=== PATIENT | female | born 1945 | race African-American/Black ===

== ENCOUNTER 2021-06-18 13:53 | Inpatient (IN) ==
[2021-06-18] MEDS ORDERED: ASPIRIN 325 MG TABLET PO STA (16:01)
[2021-06-18 16:55] LABS: Basophils % 0.5 % (0.0-0.8); Eosinophils # 0.3 10*3/uL (0.0-0.87); Eosinophils % 3.7 % (0.00-10.9); Hematocrit 47.1 VOL% (35.7-47.0); Hemoglobin 14.1 GM/DL (12.0-16.0); Immature Granulocytes % 0.4 %; Immature Granulocytes Absolute 0.03 #; Lymphocytes # 2.3 10*3/uL (1.4-4.0); Lymphocytes % 29.1 % (21.3-54.2); Mean Corpuscular HGB Conc 29.9 GM/DL (32-36); Mean Corpuscular Volume 100.6 FL (87-102); Monocytes # 0.8 10*3/uL (0.11-0.8); Monocytes % 10.3 % (1.7-12.7); Platelet Count 179 T/CUMM (130-400); Red Blood Count 4.68 MC/CUMM (3.8-5.5); Red Cell Distribution Width 13.9 % (9.3-17.3); White Blood Count 7.9 T/CUMM (4-12)
[2021-06-18 16:57] LABS: Albumin 3.5 G/DL (3.4-5.0); Bilirubin,Total 0.7 MG/DL (0.20-1.00); Calcium 9.2 MG/DL (8.5-10.1); Osmolality,Calculated 299.8 MOS/KG (273-304); Potassium 4.3 MMOL/L (3.5-5.1); Total Protein 8.1 G/DL (6.4-8.2)
[2021-06-18 17:06] LABS: INR 1.2; PT Patient Result 13.3 SECS (10.5-12.0)
[2021-06-18] MEDS ORDERED: FUROSEMIDE 40 MG/4 ML VIAL IV STA (17:54)
[2021-06-18] MEDS ORDERED: ONDANSETRON 4 MG/2 ML VIAL IV PRN (19:11)
[2021-06-18] MEDS ORDERED: GLUCAGON 1 MG VIAL IM PRN (19:11)
[2021-06-18] MEDS ORDERED: DOCUSATE SODIUM 100 MG CAPSULE PO PRN (19:11)
[2021-06-18] MEDS ORDERED: hydrALAZINE 20 MG/1 ML VIAL IV PRN (19:11)
[2021-06-18] MEDS ORDERED: ENOXAPARIN 40 MG/0.4 ML SYRINGE SUBCUT SCH (19:30)
[2021-06-18] MEDS ORDERED: DEXTROSE 10% 250 ML BAG IV PRN (19:45)
[2021-06-18 20:14] LABS: Albumin 3.6 G/DL (3.4-5.0); Bilirubin,Direct 0.12 MG/DL (0.0-0.20); Bilirubin,Indirect 0.5 MG/DL (0.0-1.0); Bilirubin,Total 0.6 MG/DL (0.20-1.00)
[2021-06-18] MEDS: ENOXAPARIN 40 MG/0.4 ML SYRINGE SUBCUT SCH (20:35)
[2021-06-18] MEDS: INSULIN REGULAR 100 UNIT/ML SUBCUT SCH (21:39)
[2021-06-18] MEDS: carvediloL 25 MG TABLET PO SCH (21:41)
[2021-06-18] MEDS: ALBUTEROL/IPRATROPIUM 3 ML NEB RESP TX SCH (23:40)
[2021-06-19] MEDS: ALBUTEROL/IPRATROPIUM 3 ML NEB RESP TX SCH ×6 (03:25→23:50)
[2021-06-19] MEDS: PANTOPRAZOLE 40 MG TABLET PO SCH (06:03)
[2021-06-19 06:12] LABS: Bilirubin,Total 0.5 MG/DL (0.20-1.00); Calcium 9.1 MG/DL (8.5-10.1); Osmolality,Calculated 298.8 MOS/KG (273-304); Potassium 3.5 MMOL/L (3.5-5.1); Risk Ratio 2.47; VLDL Cholesterol 22.6 MG/DL
[2021-06-19 06:21] LABS: Basophils % 0.5 % (0.0-0.8); Eosinophils # 0.3 10*3/uL (0.0-0.87); Eosinophils % 4.3 % (0.00-10.9); Immature Granulocytes % 0.5 %; Immature Granulocytes Absolute 0.04 #; Lymphocytes # 2.3 10*3/uL (1.4-4.0); Lymphocytes % 31.7 % (21.3-54.2); Mean Corpuscular HGB Conc 29.7 GM/DL (32-36); Mean Corpuscular Volume 101.6 FL (87-102); Mean Platelet Volume 9.9 FL (9.6-12.0); Monocytes # 0.8 10*3/uL (0.11-0.8); Monocytes % 11.2 % (1.7-12.7); Neutrophils % 51.8 % (38.7-73.9); Platelet Count 156 T/CUMM (130-400); Red Cell Distribution Width 13.8 % (9.3-17.3); White Blood Count 7.3 T/CUMM (4-12)
[2021-06-19 06:22] LABS: Hematocrit 43.7 VOL% (35.7-47.0)
[2021-06-19] MEDS: INSULIN REGULAR 100 UNIT/ML SUBCUT SCH ×4 (08:01→22:24)
[2021-06-19] MEDS ORDERED: SPIRONOLACTONE 25 MG TABLET PO SCH ×2 (09:00→13:00)
[2021-06-19] MEDS ORDERED: lisinopriL 10 MG TABLET PO SCH (09:00)
[2021-06-19] MEDS: ASPIRIN EC 81 MG TABLET PO SCH (09:48)
[2021-06-19] MEDS: predniSONE 20 MG TABLET PO SCH (09:48)
[2021-06-19] MEDS: ATORVASTATIN 40 MG TABLET PO SCH ×2 (09:50→09:54)
[2021-06-19] MEDS: AZITHROMYCIN 250 MG TABLET PO SCH (09:50)
[2021-06-19] MEDS: CHOLECALCIFEROL 5,000 UNIT TABLET PO SCH (09:54)
[2021-06-19] MEDS: carvediloL 25 MG TABLET PO SCH ×2 (10:01→22:19)
[2021-06-19] MEDS: FUROSEMIDE 40 MG/4 ML VIAL IV SCH ×2 (10:02→17:16)
[2021-06-19] MEDS ORDERED: POTASSIUM CHLORIDE 20 MEQ TABLET PO ONE (10:06)
[2021-06-19] MEDS ORDERED: SPIRONOLACTONE 25 MG TABLET PO ONE (13:00)
[2021-06-19] MEDS ORDERED: COLCHICINE 0.6 MG CAPSULE PO PRN (13:30)
[2021-06-19] MEDS: ENOXAPARIN 40 MG/0.4 ML SYRINGE SUBCUT SCH (22:19)
[2021-06-19] MEDS: MAGNESIUM OXIDE 400 MG TABLET PO SCH (22:19)
[2021-06-19 22:57] LABS: Bacteria,Urine Occasional /HPF (Few); Hyaline Casts,Urine 1 /LPF (0-3); Urine Appearance Clear (Clear); Urine Color Yellow (Yellow); Urine Specific Gravity 1.015 (1.001-1.035)
[2021-06-19 22:58] LABS: Bilirubin,Urine Negative (Negative); Blood, Urine Negative (Negative); Glucose,Urine (UA) >=1000 mg/dL (Negative); Ketones,Urine Negative (Negative); Nitrite,Urine Negative (Negative); Protein,Urine Negative (Negative); Urine Urobilinogen 0.2 eU/dL (<2.0)
[2021-06-20] MEDS: ALBUTEROL/IPRATROPIUM 3 ML NEB RESP TX SCH ×6 (03:50→23:00)
[2021-06-20 05:49] LABS: Albumin 3.1 G/DL (3.4-5.0); Bilirubin,Total 0.5 MG/DL (0.20-1.00); Calcium 9.7 MG/DL (8.5-10.1); Osmolality,Calculated 300.1 MOS/KG (273-304); Potassium 3.9 MMOL/L (3.5-5.1); Total Protein 7.2 G/DL (6.4-8.2)
[2021-06-20] MEDS: PANTOPRAZOLE 40 MG TABLET PO SCH (06:38)
[2021-06-20] MEDS ORDERED: ISOSORBIDE MONONITRATE 30 MG TABLET PO SCH (09:00)
[2021-06-20] MEDS: INSULIN REGULAR 100 UNIT/ML SUBCUT SCH ×4 (09:44→21:46)
[2021-06-20] MEDS: AZITHROMYCIN 250 MG TABLET PO SCH (09:52)
[2021-06-20] MEDS: CYANOCOBALAMIN 500 MCG TABLET PO SCH (09:52)
[2021-06-20] MEDS: MAGNESIUM OXIDE 400 MG TABLET PO SCH ×2 (09:53→21:38)
[2021-06-20] MEDS: predniSONE 20 MG TABLET PO SCH (09:53)
[2021-06-20] MEDS: ASPIRIN EC 81 MG TABLET PO SCH (09:53)
[2021-06-20] MEDS: glipiZIDE 10 MG TABLET PO SCH (09:54)
[2021-06-20] MEDS: ATORVASTATIN 40 MG TABLET PO SCH (09:55)
[2021-06-20] MEDS: carvediloL 25 MG TABLET PO SCH ×2 (09:55→21:38)
[2021-06-20] MEDS: CHOLECALCIFEROL 5,000 UNIT TABLET PO SCH (10:03)
[2021-06-20] MEDS: FUROSEMIDE 40 MG/4 ML VIAL IV SCH ×2 (10:09→18:28)
[2021-06-20] MEDS: sitaGLIPtin 100 MG TABLET PO SCH (10:20)
[2021-06-20] MEDS: SPIRONOLACTONE 25 MG TABLET PO SCH (14:00)
[2021-06-20] MEDS: ENOXAPARIN 40 MG/0.4 ML SYRINGE SUBCUT SCH (21:44)
[2021-06-21] MEDS: ALBUTEROL/IPRATROPIUM 3 ML NEB RESP TX SCH ×3 (03:47→11:44)
[2021-06-21 05:13] LABS: Basophils % 0.1 % (0.0-0.8); Hematocrit 39.8 VOL% (35.7-47.0); Hemoglobin 12.3 GM/DL (12.0-16.0); Immature Granulocytes % 0.3 %; Immature Granulocytes Absolute 0.03 #; Lymphocytes # 1.7 10*3/uL (1.4-4.0); Lymphocytes % 18.3 % (21.3-54.2); Mean Corpuscular HGB Conc 30.9 GM/DL (32-36); Mean Corpuscular Volume 97.5 FL (87-102); Mean Platelet Volume 10.1 FL (9.6-12.0); Monocytes # 0.9 10*3/uL (0.11-0.8); Monocytes % 9.9 % (1.7-12.7); Neutrophils % 71.4 % (38.7-73.9); Platelet Count 164 T/CUMM (130-400); Red Blood Count 4.08 MC/CUMM (3.8-5.5); Red Cell Distribution Width 13.3 % (9.3-17.3); White Blood Count 9.1 T/CUMM (4-12)
[2021-06-21 05:27] LABS: Calcium 9.3 MG/DL (8.5-10.1); Osmolality,Calculated 299.4 MOS/KG (273-304); Potassium 3.9 MMOL/L (3.5-5.1)
[2021-06-21] MEDS: PANTOPRAZOLE 40 MG TABLET PO SCH (07:59)
[2021-06-21] MEDS: INSULIN REGULAR 100 UNIT/ML SUBCUT SCH (09:01)
[2021-06-21] MEDS: predniSONE 20 MG TABLET PO SCH (09:03)
[2021-06-21] MEDS: glipiZIDE 10 MG TABLET PO SCH (09:03)
[2021-06-21] MEDS: CYANOCOBALAMIN 500 MCG TABLET PO SCH (09:04)
[2021-06-21] MEDS: SPIRONOLACTONE 25 MG TABLET PO SCH (09:04)
[2021-06-21] MEDS: ATORVASTATIN 40 MG TABLET PO SCH (09:05)
[2021-06-21] MEDS: AZITHROMYCIN 250 MG TABLET PO SCH (09:06)
[2021-06-21] MEDS: MAGNESIUM OXIDE 400 MG TABLET PO SCH (09:06)
[2021-06-21] MEDS: ASPIRIN EC 81 MG TABLET PO SCH (09:07)
[2021-06-21] MEDS: CHOLECALCIFEROL 5,000 UNIT TABLET PO SCH (09:07)
[2021-06-21] MEDS: carvediloL 25 MG TABLET PO SCH (09:07)
[2021-06-21] MEDS: FUROSEMIDE 40 MG/4 ML VIAL IV SCH (09:09)
[2021-06-21] MEDS: sitaGLIPtin 100 MG TABLET PO SCH (09:25)
[2021-06-21 11:57] VITALS: BP 137/77
== END 2021-06-21 11:59 | disposition home or self-care (01) | DRG 291 ==
LOC: N.ED 13:53 → N.EDINP 19:23 → N.TELEN 22:06
PROVIDERS: ADMIT Internal Medicine; ATTEND Internal Medicine